=== PATIENT | female | born 1985 | race Two or more races ===

== ENCOUNTER 2019-03-19 04:33 | Emergency (ER) | payer MEDICAID ==
[~2019-03-19] VITALS: Ht 165.1 cm; Wt 70.3 kg
--- NOTE | 2019-03-19 04:45 | NUR ---
PT BIBFA. C/O "HAVING N/V X30 MINS NOW. ABD PAIN X30 MINS WELL" +N/V NOTED. R SIDE FLANK PAIN NOTED. PTAOX4. AMBULATORY. VSS.
[2019-03-19] MEDS ORDERED: KETOROLAC TROMETHAMINE INJ 30 MG/ML VIAL ONE (04:50)
[2019-03-19 04:55] LABS: APPEARANCE,URINE Clear (CLEAR); BILIRUBIN,URINE Negative (NEGATIVE); BLOOD, URINE Moderate Ery/uL (NEGATIVE); COLOR,URINE Yellow (YELLOW); KETONES,URINE 40 (NEGATIVE); LEUKOCYTE ESTERASE ,URINE Negative (NEGATIVE); NITRITE, URINE Negative (NEGATIVE); PH,URINE 5.5 (5.0-8.0); PROTEIN,URINE 30 mg/dl (NEGATIVE); UGLUCOSE Negative (NEGATIVE); UROBILINOGEN,URINE 0.2 EU/dL (0.2)
[2019-03-19 04:58] LABS: BASOPHILS % (AUTO) 0.4 % (0.0-2.0); EOSINOPHILS % (AUTO) 0.7 % (0.0-6.0); HEMATOCRIT 42 % (33-45); HEMOGLOBIN 14.2 g/dL (11.5-14.8); LYMPHOCYTES # (AUTO) 2.6 /CMM (0.8-4.8); LYMPHOCYTES % (AUTO) 28.9 % (20.0-44.0); MEAN CORPUSCULAR HGB CONC 34 g/dl (31.0-36.0); MEAN CORPUSCULAR VOLUME 95 fL (82-100); MONOCYTES # (AUTO) 0.9 /CMM (0.1-1.30); NEUTROPHILS # (AUTO) 5.4 /CMM (1.8-8.9); PLATELET COUNT (AUTO) 250 /CMM (150-450); RED BLOOD CELL COUNT(AUTO) 4.45 MIL/uL (4.0-5.2)
[2019-03-19] MEDS ORDERED: IV NS 0.9% 1,000 ML BAG IV ONE (05:00)
[2019-03-19] MEDS ORDERED: ONDANSETRON HCL/PF - ER 4 MG/2 ML VIAL IV ONE (05:00)
[2019-03-19] MEDS ORDERED: KETOROLAC TROMETHAMINE INJ 30 MG/ML VIAL IV ONE (05:00)
[2019-03-19] MEDS ORDERED: ONDANSETRON HCL/PF 4 MG/2 ML VIAL ONE (05:02)
[2019-03-19 05:06] LABS: CALCIUM, SERUM 9.4 mg/dL (8.5-10.1); CREATININE 0.8 mg/dL (0.6-1.3); POTASSIUM 3.5 mmol/L (3.5-5.1)
[2019-03-19 05:12] LABS: ALBUMIN 4.1 g/dL (3.4-5.0); BILIRUBIN,DIRECT 0.1 mg/dL (0.0-0.2); BILIRUBIN,TOTAL 0.5 mg/dL (0.2-1.0); TOTAL PROTEIN, SERUM 7.6 g/dL (6.4-8.2)
[2019-03-19 05:24] LABS: RBC,URINE 0-2 /HPF (0-2); WBC,URINE 0-2 /HPF (0-3)
[2019-03-19 05:25] LABS: BACTERIA,URINE Few /HPF (None Seen); SQUAMOUS EPITHELIAL CELL,UR Few /HPF (None Seen)
[2019-03-19] MEDS ORDERED: METOCLOPRAMIDE HCL 10 MG/2 ML VIAL ONE (05:27)
[2019-03-19] MEDS ORDERED: METOCLOPRAMIDE HCL 10 MG/2 ML VIAL IV ONE (05:30)
[2019-03-19] MEDS ORDERED: HYDROMORPHONE 1 MG/1 ML DISP.SYRIN IV ONE (05:30)
[2019-03-19] MEDS ORDERED: HYDROMORPHONE 1 MG/1 ML DISP.SYRIN ONE ×2 (05:46→08:53)
[2019-03-19] MEDS ORDERED: HYDROMORPHONE INJ 0.5 MG/0.5 ML SYRINGE IV ONE (09:00)
--- NOTE | 2019-03-19 09:30 | NUR ---
US at bedside. Pt aware of plan of care
--- NOTE | 2019-03-19 10:31 | NUR ---
Patient discharged to home in stable condition. Written and verbal after care instructions given. Patient verbalizes understanding of instruction.IV removed. Catheter intact and site benign. Pressure and 4x4 applied to site. No bleeding noted.
[2019-03-19 10:36] VITALS: BP 121/77
== END 2019-03-19 10:37 | disposition home or self-care (01) ==
LOC: ER 04:36
DX: R10.11 Right upper quadrant pain (principal); R10.31 Right lower quadrant pain
CPT/HCPCS: 36415; 71045; 74176; 76856; 80048; 80076; 81001; 83690; 84703; 85025; 96374; 96375; 96376; 99284; J1170 ×2; J1885; J2405; J2765; J7030; 81000-TC

== ENCOUNTER 2024-04-04 02:02 | Emergency (ER) | payer MEDICAID, OTHER ==
[~2024-04-04] VITALS: Ht 157.5 cm; Wt 81.6 kg
[2024-04-04] MEDS ORDERED: TDAP [DIPH/PERTUSSIS/TET] 0.5 ML VIAL IM ONE (02:26)
[2024-04-04] MEDS ORDERED: LIDOCAINE MPF 1%-EPI 1:200,000 30 ML VIAL IJ ONE ×2 (02:29→02:36)
[2024-04-04] MEDS: TDAP [DIPH/PERTUSSIS/TET] 0.5 ML VIAL IM ONE (02:30)
[2024-04-04] MEDS: LIDOCAINE /MPF 1% VIAL 5 ML VIAL IJ ONE (02:30)
[2024-04-04] MEDS ORDERED: LIDOCAINE HCL/PF 1% 30 ML SDV ONE (02:33)
[2024-04-04 03:10] VITALS: BP 133/74; TEMP 98; O2SAT 99
== END 2024-04-04 03:10 | disposition home or self-care (01) ==
LOC: ER 02:04
DX: S61.211A Laceration without foreign body of left index finger without damage to nail, initial encounter (principal); W26.8XXA Contact with other sharp object(s), not elsewhere classified, initial encounter; Y93.89 Activity, other specified; Y92.89 Other specified places as the place of occurrence of the external cause; Y99.8 Other external cause status
CPT/HCPCS: 12002; 90471; 90715; 99283; J3490

== ENCOUNTER 2024-04-18 01:46 | Emergency (ER) | payer OTHER ==
[~2024-04-18] VITALS: Ht 162.6 cm; Wt 74.8 kg
[2024-04-18 01:59] VITALS: BP 121/76; TEMP 98.8; O2SAT 98
== END 2024-04-18 02:58 | disposition home or self-care (01) ==
LOC: ER 01:50
DX: S61.211D Laceration without foreign body of left index finger without damage to nail, subsequent encounter (principal); Z48.02 Encounter for removal of sutures; X58.XXXD Exposure to other specified factors, subsequent encounter

== ENCOUNTER 2024-08-04 14:41 | Emergency (ER) | payer OTHER ==
[~2024-08-04] VITALS: Ht 162.6 cm; Wt 72.6 kg
[2024-08-04] MEDS: IV NS 0.9% 1,000 ML BAG IV ONE (15:33)
[2024-08-04 15:44] LABS: BASOPHILS % (AUTO) 0.5 % (0.0-2.0); EOSINOPHILS # (AUTO) 0.1 K/uL (0.0-0.7); EOSINOPHILS % (AUTO) 0.7 % (0.0-6.0); HEMATOCRIT 41 % (33-45); HEMOGLOBIN 13.6 g/dL (11.5-14.8); LYMPHOCYTES # (AUTO) 1.1 K/uL (0.8-4.8); MEAN CORPUSCULAR HEMOGLOBIN 30 PG (26.0-33.0); MEAN CORPUSCULAR HGB CONC 33 g/dl (31.0-36.0); MEAN CORPUSCULAR VOLUME 91 fL (82-100); MONOCYTES # (AUTO) 0.5 K/uL (0.1-1.30); MONOCYTES % (AUTO) 4.7 % (2.0-12.0); NEUTROPHILS # (AUTO) 8.2 K/uL (1.8-8.9); NEUTROPHILS % (AUTO) 83.1 % (43.0-81.0); PLATELET COUNT (AUTO) 277 K/uL (150-450); RED BLOOD CELL COUNT(AUTO) 4.48 MIL/uL (4.0-5.2); RED CELL DISTRIBUTION WIDTH 14.1 % (11.5-15.0); WHITE BLOOD COUNT (AUTO) 9.9 K/uL (4.3-11.0)
[2024-08-04 15:53] LABS: CALCIUM, SERUM 8.9 mg/dL (8.5-10.1); CREATININE 0.7 mg/dL (0.6-1.3); POTASSIUM 3.9 mmol/L (3.5-5.1)
[2024-08-04 16:34] LABS: APPEARANCE,URINE Clear (CLEAR); BILIRUBIN,URINE Negative (NEGATIVE); BLOOD, URINE Large Ery/uL (NEGATIVE); COLOR,URINE YELLOW (YELLOW); KETONES,URINE Negative (NEGATIVE); LEUKOCYTE ESTERASE ,URINE Negative (NEGATIVE); NITRITE, URINE Negative (NEGATIVE); PROTEIN,URINE Negative (NEGATIVE); UGLUCOSE Negative (NEGATIVE); UROBILINOGEN,URINE 0.2 EU/dL (0.2)
[2024-08-04 16:38] LABS: PREGNANCY TEST URINE QUAL NEGATIVE (NEGATIVE)
[2024-08-04 16:44] LABS: ADD URINE CULTURE NO; BACTERIA,URINE Few /HPF (None Seen); SQUAMOUS EPITHELIAL CELL,UR Few /HPF (None Seen); WBC,URINE 0-2 /HPF (0-3)
[2024-08-04 18:22] VITALS: BP 111/71; TEMP 98.3; O2SAT 98
== END 2024-08-04 18:22 | disposition home or self-care (01) ==
LOC: ER 14:43
DX: R56.9 Unspecified convulsions (principal); R10.2 Pelvic and perineal pain; Z87.442 Personal history of urinary calculi
CPT/HCPCS: 99285; 96360; 70450; 93005; 85025; 80048; 84703; 81001; 36415; J7030

== ENCOUNTER 2025-01-02 13:18 | Emergency (ER) | payer OTHER ==
[~2025-01-02] VITALS: Ht 152.4 cm; Wt 73.5 kg
[2025-01-02 14:01] VITALS: BP 123/97; TEMP 98.5
[2025-01-02] MEDS ORDERED: DEXT1LOZ20 PO (14:56)
[2025-01-02] MEDS ORDERED: GUAI1TBM19 PO (14:56)
[2025-01-02] MEDS ORDERED: IBUP-1953 PO (14:56)
[2025-01-02 15:11] VITALS: O2SAT 99
== END 2025-01-02 15:12 | disposition home or self-care (01) ==
LOC: ER 13:23
DX: J02.9 Acute pharyngitis, unspecified (principal); Z87.442 Personal history of urinary calculi; Z79.899 Other long term (current) drug therapy
CPT/HCPCS: 86403-TC; 87070-TC